=== PATIENT | male | born 2000 | race Hispanic/Latino ===

== ENCOUNTER 2024-06-08 17:41 | Emergency (ER) | payer SELFPAY ==
[~2024-06-08] VITALS: Ht 180.3 cm; Wt 72.6 kg
[2024-06-08] MEDS ORDERED: ONDANSETRON HCL INJ 2MG/ML 2ML 2 MG/ML VIAL ONE (19:30)
[2024-06-08] MEDS: ONDANSETRON HCL INJ 2MG/ML 2ML 2 MG/ML VIAL IV STA (19:37)
[2024-06-08] MEDS: TETANUS/DIPHTHERIA TOX ADULT 0.5 ML SYR IM ONE (19:37)
[2024-06-08] MEDS: Morphine 4mg INJECTION 4 MG/ML INJ IV ONE (19:38)
[2024-06-08] MEDS: CLINDAMYCIN 600MG / 50ML 50 ML IV ONE (19:38)
[2024-06-08 19:58] VITALS: PULSE 90; RESP 20; TEMP 97.8
[2024-06-08 20:23] VITALS: BP 138/84; PULSE 84; RESP 18; O2SAT 100
== END 2024-06-08 20:05 | disposition other institution (70) ==
LOC: FSED 17:52
DX: R68.84 Jaw pain (principal); S02.69XA Fracture of mandible of other specified site, initial encounter for closed fracture; S02.2XXA Fracture of nasal bones, initial encounter for closed fracture; Y04.0XXA Assault by unarmed brawl or fight, initial encounter; Y92.89 Other specified places as the place of occurrence of the external cause
CPT/HCPCS: 70450; 70486; 80053; 85025; 90471; 90714; 99284; J2270; J2405